=== PATIENT | male | born 1965 | race Caucasian/White ===

== ENCOUNTER → 2020-10-29 | Outpatient (CLI) | payer BC ==
--- NOTE | 2020-10-29 21:12 | CONS ---
CONSULTATION 55-year-old gentleman has been evaluated in the sleep center for possible obstructive sleep apnea-hypopnea syndrome. HISTORY OF PRESENT ILLNESS/SLEEP WAKE EVALUATION: SLEEP SCHEDULE: Patient's usual sleep schedule from 10 p.m. to 6 a.m. FALLING ASLEEP: Usually no problems with falling asleep. No TV in bedroom. DURING SLEEP: He sleeps on the side position. According to his , he has loud snoring. Possibly stops breathing during sleep and gasping for air. The patient wakes up from sleep 5 times with nocturia. DURING THE DAY/SLEEP WAKE EVALUATION: No history of hypnagogic hallucinations, sleep paralysis or cataplexy. The patient denied significant sleepiness. Story Sleepiness Scale is 3. He usually does not take naps. PAST MEDICAL HISTORY: Positive for atrial fibrillation, hypertension, hyperlipidemia, knee problems. PAST SURGICAL HISTORY: Bilateral knee replacement surgery 10/22/2020 MEDICATIONS: Lisinopril 10 mg once a day, Flecainide 100 mg once a day, atorvastatin 20 mg once a day. Motrin 800 mg as needed. SOCIAL HISTORY: Positive for smoking; quit 10 years ago. FAMILY HISTORY: Heart problems and thyroid problems. REVIEW OF SYSTEMS: Snoring, multiple awakenings from sleep with nocturia. PHYSICAL EXAMINATION: GENERAL: gentleman without distress. BP 117/76, HR about 100, RR 15, height 5 feet 10 inches, weight 283.8, temperature 98.0, oxygen saturation at room air 98%. Body mass index 40.6. HEENT: PERRLA, EOMI. Oropharynx extremely low position of soft palate. Mallampati IV. NECK: 16-1/4 inches in circumference. Neck: Supple, no JVD. Thyroid is not palpable. LUNGS: Clear to percussion and to auscultation. Good air exchange. No wheezing or rhonchi. HEART: S1, S2 regular. No murmurs, gallops, or rubs. ABDOMEN: Soft and nontender. Bowel sounds are present. No organomegaly appreciated. EXTREMITIES: Scars from both knees after surgery, 2+ swelling ankles bilaterally. FOREST SCIENTIST: Awake, alert, and oriented X3. Cranial nerves 2 to 7 intact. There is no fasciculation or atrophy. noted. No focal deficits observed. IMPRESSION: 1. Loud snoring, awakenings from sleep 5 times with nocturia, extremely low position of soft palate, Mallampati 4. Borderline size of neck. Obstructive sleep apnea- hypopnea syndrome. 2. Obesity, body mass index 40.6. 3. History of atrial fibrillation. 4. Hypertension. 5. Hyperlipidemia. 6. History of knee problems, status post partial bilateral knee replacement recently. 7. Swelling of the legs. PLAN: Home sleep apnea test for evaluation of patient breathing during sleep. 1. CPAP/BiPAP titration if sleep study confirms obstructive sleep apnea-hypopnea syndrome. 2. Preferable position during sleep on the side. 3. No driving if patient feels any sleepiness. 4. I will see patient for follow up visit to explain results of testing and following plan. Medhat Valles MD, PhD, FAASM Diplomat of [place] [employer] [place] [employer] [facility] [place] MMODL / IJN: [id number] /
== END ==
LOC: SLEEP 14:38
PROVIDERS: ATTEND Internal Medicine
DX: G47.33 Obstructive sleep apnea (adult) (pediatric) (principal); E66.9 Obesity, unspecified; E78.5 Hyperlipidemia, unspecified; I10 Essential (primary) hypertension; I48.91 Unspecified atrial fibrillation; M79.89 Other specified soft tissue disorders; R35.1 Nocturia; Z87.891 Personal history of nicotine dependence; Z96.653 Presence of artificial knee joint, bilateral; Z68.41 Body mass index [BMI] 40.0-44.9, adult
CPT/HCPCS: 99211

== ENCOUNTER → 2021-01-29 | Outpatient (CLI) | payer BC ==
--- NOTE | 2021-01-29 18:57 | SFUN ---
SLEEP CENTER FOLLOW UP NOTE DATE OF SERVICE: 01/29/2021 This 55-year-old gentleman has been followed in Sleep Center for treatment of obstructive sleep apnea-hypopnea syndrome. Recently the patient had a home sleep apnea test which documented that the patient has obstructive sleep apnea-hypopnea syndrome, and then the patient was started on treatment with CPAP. Today is his first visit after he was started on that therapy. The patient does not snore with the machine and he does not wake up from sleep as often as he did before. Lee Sleepiness Scale today is 1, which is perfect. I checked the information about his CPAP unit. Pressure is 5-15 cm of water, average pressure in the range of 8 cm of water. Usage is 93% of the nights for more than 4 hours. Average usage 7 hours and 50 minutes. Leak is 17.7 L/minute, 95%. Apnea-hypopnea index is 0.6, which is absolutely normal. MEDICATIONS: 1. Lisinopril 10 mg once a day. 2. Flecainide 100 mg once a day. 3. Atorvastatin 20 mg once a day. 4. Motrin 800 mg as needed. PHYSICAL EXAMINATION: GENERAL: Pleasant patient in no distress. VITAL SIGNS: BP 131/78, HR 87, RR 12, weight 283.4, temperature 97.8, oxygen saturation at room air 97%. HEENT: PERRLA, EOMI, evaluation of oropharynx showed tongue protrudes midline. Extremely low position of soft palate; Mallampati IV. NECK: Supple, no JVD. Thyroid is not palpable. LUNGS: Clear to percussion and to auscultation. Good air exchange. No wheezing or rhonchi. HEART: S1, S2 regular. No murmurs, gallops, or rubs. ABDOMEN: Soft and nontender. Bowel sounds are present. No organomegaly appreciated. EXTREMITIES: One plus ankle swelling bilaterally. ALUMINA REFINERY OPERATOR: Awake, alert, and oriented X3. Cranial nerves 2 to 7 intact. There is no fasciculation or atrophy. noted. No focal deficits observed. IMPRESSION: 1. Obstructive sleep apnea-hypopnea syndrome. The patient demonstrated great compliance with treatment, benefitting from treatment. 2. Obesity. 3. History of atrial fibrillation. 4. Hypertension. 5. Hyperlipidemia. 6. History of knee problems, status post partial bilateral knee replacement. 7. Swelling of the legs. PLAN: 1. Patient will continue to use PAP equipment every night for the whole night. 2. Sleep hygiene with regular time in bed for at least 7-1/2 to 8 hours. 3. Precautions related to driving. No driving if feeling sleepiness. 4. I will maintain all necessary prescription for PAP supplies including mask, tube, filters. 5. Watching weight. 6. Follow-up visit in 6 months or earlier if patient has any problems. I spent 30 minutes with the patient and in documentation. Thank you very much for allowing me to participate in the management of your patient. Sincerely, Medhat Valles MD, PhD, FAASM Diplomat of [place] [employer] Sleep Medicine Board of [place] [employer] [facility] [place] MMBRANDON / BARRY: [id number] /
== END ==
LOC: SLEEP 15:54
PROVIDERS: ATTEND Internal Medicine
DX: G47.33 Obstructive sleep apnea (adult) (pediatric) (principal); E66.9 Obesity, unspecified; I10 Essential (primary) hypertension; E78.5 Hyperlipidemia, unspecified; I48.91 Unspecified atrial fibrillation; M25.869 Other specified joint disorders, unspecified knee; M79.89 Other specified soft tissue disorders; Z96.653 Presence of artificial knee joint, bilateral; Z79.899 Other long term (current) drug therapy; Z87.891 Personal history of nicotine dependence

== ENCOUNTER → 2023-06-27 | Outpatient (CLI) | payer BC ==
--- NOTE | 2023-06-27 13:57 | US ---
EXAMINATION TYPE: US bladder DATE OF EXAM: 06/27/2023 COMPARISON: NONE CLINICAL INDICATION: Male, 58 years old with history of R35.0 FREQUENCY OF MICTURITION; TECHNIQUE: Multiple sonographic images of the bladder are obtained. FINDINGS: EXAM MEASUREMENTS: Post Void Residual Volume: 32 mL POTATO CHIP FRYER NOTES: Prostate noted measuring 4.8 x 3.9 x 5.1 cm Color Doppler performed to assess ureteral jets. Bilateral Jets seen: Yes Normal Post Void Residual (less than 50ml): Yes IMPRESSION: Prostate gland enlargement. Otherwise unremarkable study.
== END | disposition home or self-care (01) ==
LOC: RADUSWWP 13:28
PROVIDERS: ATTEND Family Medicine
DX: N40.1 Benign prostatic hyperplasia with lower urinary tract symptoms (principal); R35.0 Frequency of micturition
CPT/HCPCS: 76857